=== PATIENT | male | born 1970 | race Caucasian/White ===

== ENCOUNTER 2018-09-25 14:24 | Emergency (ER) | payer MEDICAID ==
[~2018-09-25] VITALS: Ht 175.3 cm; Wt 94.8 kg
[2018-09-25 14:45] VITALS: BP 144/92
--- NOTE | 2018-09-25 14:45 | NUR ---
PT AMBULATED TO BED 5
--- NOTE | 2018-09-25 14:45 | NUR ---
48Y/M BIB WITH C/O BUMP ON HEAD X 2 MONTHS, - TERRY, -N/V/D, NO TRAUMA, - BLURRY VISION. PT STATES BUMP ON HEAD HAS GOTTEN BIGGER AND BIGGER WITHIN THE LAST TWO MONTHS. PT IS AAOX4, VSS, BED DOWN, BEDRAIL UP X 1, ER MD AWARE AND NOTIFIED OF PT STATUS. PMH: NONE HX: DENIES
--- NOTE | 2018-09-25 15:25 | NUR ---
Patient being evaluated by MALOU galvan at bedside.
[2018-09-25 15:51] VITALS: BP 141/90
== END 2018-09-25 15:51 | disposition home or self-care (01) ==
LOC: MED 14:24
DX: L72.0 Epidermal cyst (principal)
CPT/HCPCS: 99282